=== PATIENT | female | born 1970 | race American Indian/Alaskan Native ===

== ENCOUNTER 2021-09-05 09:05 | Outpatient (CLI) | payer MEDICAID ==
--- NOTE | 2021-09-05 09:56 | XRay Report ---
XR hips BILAT 2V w/pelvis INDICATION / CLINICAL INFORMATION: M25.551 PAIN IN RIGHT HIP. COMPARISON: None available. FINDINGS: BONES/JOINT(S): No acute fracture or subluxation. Normal bone mineralization. SOFT TISSUES: No significant abnormality. ADDITIONAL FINDINGS: None. IMPRESSION: 1. No acute findings. Signer Name: Juan Ellsworth MD Signed: 09/05/2021 9:52 AM Workstation Name: [id number]
--- NOTE | 2021-09-05 12:53 | Magnetic Resonance Report ---
MRI LUMBAR SPINE WITHOUT CONTRAST INDICATION / CLINICAL INFORMATION: M47.816 SPONDYLOSIS W/O MYELOPATHY. TECHNIQUE: Multisequence, multiplanar images of the lumbar spine were obtained. COMPARISON: Lumbosacral spine series from 05/10/2008 FINDINGS: Lumbosacral junction L5-S1 ALIGNMENT: Normal lumbar lordosis without significant scoliosis. VERTEBRAE:Normal marrow signal and vertebral body height for age. VISUALIZED SPINAL CORD: No significant abnormality. Conus ends at L1-L2 disc level [id number] ANALYSIS: L1-2: No significant abnormality. L2-3: No significant abnormality. L3-4: No significant abnormality. L4-5: Grade 1 anterolistheses; asymmetric disc bulge towards the foraminal zone bilaterally more on t he right side; moderate bilateral foraminal stenoses; mild facet and ligamentous hypertrophy; moderat e facet joint effusion; L5-S1: Shallow disc bulge: Neuroforamina normal PARASPINAL SOFT TISSUES: No significant abnormality. ADDITIONAL FINDINGS: None. IMPRESSION: L4-L5: Grade 1 anterolistheses; mild facet and ligamentous hypertrophy; asymmetric disc bulge toward s the foraminal zone bilaterally more on the right side; moderate bilateral foraminal stenoses; moder ate bilateral facet joint effusion Signer Name: Michael Chavez MD Signed: 09/05/2021 12:49 PM Workstation Name: [id number]
== END 2021-09-05 09:06 | disposition home or self-care (01) ==
LOC: XRAY 09:05
PROVIDERS: ATTEND Pain Medicine Interventional Pain Medicine
DX: M47.816 Spondylosis without myelopathy or radiculopathy, lumbar region (principal); G03.9 Meningitis, unspecified; M51.27 Other intervertebral disc displacement, lumbosacral region; M48.061 Spinal stenosis, lumbar region without neurogenic claudication
CPT/HCPCS: 72148; 73521